=== PATIENT | female | born 1965 | race Caucasian/White ===

== ENCOUNTER → 2016-11-28 | Outpatient (CLI) | payer OTHER ==
[~2016-11-28] MED LIST: CYAN10005 PO; MISCCAP80; MULT-506 PO; XNX25 PO
--- NOTE | 2016-11-30 08:15 | MAMMOGRAPHY REPORT ---
BILATERAL DIGITAL DIAGNOSTIC MAMMOGRAM TOMOSYNTHESIS WITH CAD AND TARGETED LEFT ULTRASOUND: 11/28/2016 CLINICAL HISTORY: 51-year-old woman presents with a lump in the left breast that she has noticed for approximately one month. It has not significantly changed in size over that time. No associated jes n, skin erythema or thickening or nipple discharge. Family history of breast cancer = mother at age 75. Also due for annual bilateral screening exam. TECHNIQUE: Bilateral breast tomosynthesis in addition to standard 2D mammography was performed. Curre nt study was also evaluated with a Computer Aided Detection (CAD) system. COMPARISON: Comparison is made to exams dated: 12/12/2014 mammogram, 12/16/2015 mammogram, 4 mammogram, 11/28/2012 mammogram, 10/26/2011 mammogram, and 10/15/2009 mammogram - [facility]. BREAST COMPOSITION: The tissue of both breasts is heterogeneously dense, which may obscure small mas ses. FINDINGS: A triangular shaped palpable marker was placed on the skin of the 2:00 anterior left breas t, denoting the palpable lump pointed out by the patient. In the area of concern, there is a 3.8 x 2 .7 cm focal asymmetry in the upper outer anterior left breast, which appears similar to all available prior mammograms dating back to at least 10/26/2011. It is less conspicuous on more remote mammogra ms given increased density throughout the remainder of the breasts causing it to be less conspicuous. There is no associated architectural distortion or microcalcification. No other suspicious mass, a symmetry, calcifications or distortion are seen elsewhere throughout the left breast or within the ri ght breast. Targeted ultrasound was performed in the area of palpable lump pointed out by the patient. On palpat ion, there is a firm plateau of tissue with focal nodular area in the 2:00 left breast, 1 cm from the nipple. On ultrasound, there is dense heterogeneous hypoechoic and isoechoic tissue, most likely re presenting fibroglandular tissue with stromal fibrosis. No underlying solid or cystic mass is seen. However, given the discrete palpable nature which is new to the patient, would consider fine-needle aspiration based on palpation in the pathology department, despite negative imaging. IMPRESSION: ACR BI-RADS CATEGORY 2: BENIGN, TARGETED ULTRASOUND ACR BI-RADS CATEGORY 2: BENIGN 1. There is a focal asymmetry in the left upper outer quadrant, likely correlating with the palpable lump pointed out by the patient, and dense fibroglandular tissue with stromal fibrosis on ultrasound . Although this asymmetry appeared similar to prior mammograms, and these findings appear benign bas ed on imaging, given the newly palpable nature of this abnormality felt by the patient, would conside r fine-needle aspiration based on palpation in the pathology department to exclude a subtle infiltrat devorah process. 2. Otherwise stable mammographic appearance of the breasts, without mammographic evidence of maligna ncy. These results and recommendations were discussed with the patient at the time of the exam. Approximately 10% of breast cancers are not detected with mammography. A negative mammographic report should not delay biopsy if a clinically suggestive mass is present. Aditi Garcia M.D. ay/:11/28/2016 10:38:36 Change Management Administrator: Karlene Hensley, [facility] letter sent: Normal 1/2 BI-RADS Code: ACR BI-RADS Category 2: Benign Ultrasound BI-RADS: ACR BI-RADS Category 2: Benign
== END | disposition home or self-care (01) ==
LOC: C.MAMM 09:27
PROVIDERS: ATTEND Physician Assistant
DX: N63.20 Unspecified lump in the left breast, unspecified quadrant (principal); R92.2 Inconclusive mammogram

== ENCOUNTER → 2017-01-10 | Outpatient (CLI) | payer OTHER | END | disposition home or self-care (01) | LOC: C.PATH 08:28 | PROVIDERS: ATTEND Physician Assistant | DX: Z12.4 Encounter for screening for malignant neoplasm of cervix (principal); N63.0 Unspecified lump in unspecified breast ==